=== PATIENT | female | born 1970 | race Caucasian/White ===

== ENCOUNTER 2017-02-05 14:58 | Emergency (ER) | payer OTHER ==
[~2017-02-05] VITALS: Wt 93.0 kg
[2017-02-05] MEDS ORDERED: SOD CHLORIDE 0.9% 1,000 ML IV STA (15:40)
[2017-02-05] MEDS ORDERED: LORAZEPAM 2 MG INJ IV ONE (16:00)
[2017-02-05] MEDS ORDERED: METHYLPREDNISOLONE 125 MG INJ IV ONE (16:00)
--- NOTE | 2017-02-05 16:54 | ERD ---
ER Documentation Chief Complaint Date/Time DATE: 02/05/17 TIME: 16:37 Chief Complaint ALLERGIC REACTION X 1 MONTH WITH EAR PAIN HPI 6-year-old woman complaining of an itchy red rash 1 month beginning shortly after she dyed her hair, although she did begin using benazepril a month prior. She has been seen and evaluated at 2 different emergency departments and workups were unremarkable and she was prescribed prednisone, clindamycin, hydralazine and [place] which she states she was not using. She states she almost finished a 5 day course of prednisone but did not use the other medications after a few days because she felt the rash got worse after using them. She denies fevers or chills, no dysuria or vaginal discharge, no chest pain or shortness of breath. Patient denies recent camping, no rash of the palms or soles, no weight loss. ROS All systems reviewed and are negative except as per history of present illness. Medications Home Meds Reported Medications [None] No Conflict Check 02/26/12 Allergies Allergies: Coded Allergies: No Known Allergies (Verified Allergy, Unknown, 02/26/12) PMhx/Soc Hypertension History of Surgery: Yes (HYSTERECTOMY ON FEBRUARY [id number]) Anesthesia Reaction: No Hx Neurological Disorder: No Hx Respiratory Disorders: No Hx Cardiac Disorders: No Hx Psychiatric Problems: Yes (ANXIETY) Hx Miscellaneous Medical Probl: Yes Hx Alcohol Use: No Hx Substance Use: No Hx Tobacco Use: No Smoking Status: Current every day smoker FmHx Family History: No diabetes Physical Exam Vitals Vital Signs Date Time Temp Pulse Resp B/P Pulse Ox O2 Delivery O2 Flow Rate FiO2 02/05/17 15:00 99.4 118 18 156/71 98 Physical Exam GENERAL: Well-developed, well-nourished, appears dehydrated, afebrile HEENT: Dry mucous membranes, pink conjunctiva, no cervical spine tenderness or step-off deformities, no goiter, no jaundice or icterus, extraocular movements intact without pain. No submandibular induration, and no pharyngeal erythema NEURO: Alert and oriented 3, cranial nerves II through XII intact bilaterally, pupils equal round reactive to light, no focal deficits or facial asymmetry, sensation intact distally Strength 5/5 in upper and lower extremities bilaterally CARDIAC: Tachycardic and regular, no murmurs rubs or gallops LUNGS: Clear bilaterally no wheezing crackles or stridor ABDOMEN: Soft nontender, no guarding, no rigidity, no rebound, no psoas sign no obturator sign. Normoactive bowel sounds SKIN: Warm and dry to touch, diffuse urticarial lesions throughout the torso and face, there is diffuse, erythematous maculopapular eruption over her face neck torso and upper extremities. Rash spares the palms and soles, no ulcers or target lesions noted, no vesicles noted. EXTREMITIES: No clubbing cyanosis or edema, calves are bilaterally symmetrical, no Homans sign, no popliteal cord sign. Distal pulses equal and bilateral PSYCH: Normal affect without agitation or irritability Results 24 hrs Current Medications Medications (Trade) Dose Ordered Sig/Vesta Route PRN Reason Start Time Stop Time Status Last Admin Dose Admin Sodium Chloride (NS) 1,000 ml @ 1,000 mls/hr Q1H STAT IV 02/05/17 15:40 02/05/17 16:39 Methylprednisolone Sodium Succinate (Solu-Medrol) 125 mg ONCE ONCE IV 02/05/17 16:00 02/05/17 16:01 DC Lorazepam (Ativan) 0.5 mg ONCE ONCE IV 02/05/17 16:00 02/05/17 16:01 DC Procedures/MDM After discussing the patient's case at length with her, while at the bedside I recommended ED management with medications, IV fluids, imaging, with blood and urine testing. I suspect the patient is suffering from a fixed drug eruption secondary to adverse reaction to benazepril. Benazepril is known to cause angioedema, anaphylactoid reactions, photosensitivity, as well as pemphigus all of which are possibilities at this point. Despite my explanation the patient eloped from the emergency department. Management and evaluation was incomplete. Differential diagnoses considered, included but not limited to acute coronary syndrome, pulmonary embolism, aortic dissection, abdominal aortic aneurysm, sepsis, stroke, meningitis, encephalitis, pneumonia, appendicitis, cholecystitis , bowel obstruction, pyelonephritis, nephrolithiasis, cystitis, as well as metabolic, hematologic, and electrolyte abnormalities. As well as abscess, cellulitis, fractures, and dislocations. Departure Diagnosis: Primary Impression: Fixed drug eruption Additional Impressions: Allergy or intolerance to drug Severe allergy Encounter type: initial encounter Qualified Code: T78.40XA - Severe allergy , initial encounter Condition: Stable MONISHA SALTER MD Feb 05, 2017 16:54
== END 2017-02-05 15:50 | disposition left against medical advice (07) ==
LOC: FTE 14:58
DX: L27.1 Localized skin eruption due to drugs and medicaments taken internally (principal); T46.4X5A Adverse effect of angiotensin-converting-enzyme inhibitors, initial encounter; F17.210 Nicotine dependence, cigarettes, uncomplicated
CPT/HCPCS: J7030; Z7502; 99282